=== PATIENT | female | born 1945 | race Caucasian/White ===

== ENCOUNTER 2016-09-09 05:35 | Day surgery (SDC) | payer MEDICARE, OTHER ==
[~2016-09-09] VITALS: Ht 152.4 cm; Wt 76.4 kg
[~2016-09-09 05:35] MED LIST: IBUP-2070 PO; KDUR20 PO; METF500T4 PO; MULT-1259 PO; OMEP20 PO; RALO60 PO; SENN-34 PO; SIMV10TA6 PO; TIZA4TAB4 PO; VALS1TAB73 PO
[2016-09-09] MEDS ORDERED: SODIUM CHLORIDE 0.9% 1,000 ML IV ONE ×2 (05:47→06:00)
[2016-09-09] MEDS ORDERED: FentaNYL CITRATE-PF 100 MCG/2 ML VIAL ONE (08:11)
[2016-09-09 08:13] VITALS: BP 177/75
[2016-09-09] MEDS ORDERED: DiphenhydrAMINE HCL 50 MG/ML VIAL ONE (08:13)
[2016-09-09] MEDS ORDERED: BUPIVACAINE HCL/PF 0.75% 10 ML VIAL ONE (08:13)
[2016-09-09] MEDS ORDERED: TRIAMCINOLONE ACETONIDE 40 MG/ML VIAL ONE ×2 (08:13→08:24)
[2016-09-09] MEDS ORDERED: MethylPREDNISolone SOD SUCC 125 MG/2 ML VIAL ONE (08:13)
[2016-09-09] MEDS ORDERED: IOHEXOL 300 MG/ML 10 ML VIAL ONE (08:13)
[2016-09-09] MEDS ORDERED: MIDAZOLAM HCL 2 MG/2 ML VIAL ONE (08:13)
[2016-09-09] MEDS ORDERED: SODIUM BICARBONATE 50 MEQ/50 ML VIAL ONE (08:14)
[2016-09-09] MEDS ORDERED: LIDOCAINE HCL/PF 2% 5 ML VIAL ONE (08:14)
[2016-09-09] MEDS ORDERED: LIDOCAINE HCL/PF 1% 30 ML VIAL ONE (08:14)
[2016-09-09 08:35] VITALS: BP 150/67
[2016-09-09] MEDS ORDERED: IOHEXOL 300 MG/ML 10 ML VIAL IARTIC ONE (09:00)
[2016-09-09] MEDS ORDERED: MIDAZOLAM HCL 2 MG/2 ML VIAL IVP ONE (09:00)
[2016-09-09] MEDS ORDERED: MethylPREDNISolone SOD SUCC 125 MG/2 ML VIAL IVP ONE (09:00)
[2016-09-09] MEDS ORDERED: TRIAMCINOLONE ACETONIDE 40 MG/ML VIAL IARTIC ONE (09:00)
[2016-09-09] MEDS ORDERED: LIDOCAINE 1% 30 ML/SOD BICARB 8.4% 4 ML SQ ONE (09:00)
[2016-09-09] MEDS ORDERED: FentaNYL CITRATE-PF 100 MCG/2 ML VIAL IVP ONE (09:00)
[2016-09-09] MEDS ORDERED: DiphenhydrAMINE HCL 50 MG/ML VIAL IVP ONE (09:00)
[2016-09-09 11:04] LABS: GLUCOSE,POINT OF CARE 89 MG/DL (70-110)
== END 2016-09-09 10:05 | disposition home or self-care (01) ==
LOC: SDS 05:35
PROVIDERS: ATTEND Specialist
DX: M48.06 Spinal stenosis, lumbar region (principal); G89.29 Other chronic pain; M54.5 Low back pain; I10 Essential (primary) hypertension; E11.9 Type 2 diabetes mellitus without complications; K21.9 Gastro-esophageal reflux disease without esophagitis; F17.210 Nicotine dependence, cigarettes, uncomplicated; Z88.2 Allergy status to sulfonamides; Z88.8 Allergy status to other drugs, medicaments and biological substances; Z96.652 Presence of left artificial knee joint; Z98.890 Other specified postprocedural states; Z90.49 Acquired absence of other specified parts of digestive tract; Z86.73 Personal history of transient ischemic attack (TIA), and cerebral infarction without residual deficits
CPT/HCPCS: 62323; 82962; J1200; J2250; J2930; J3010; J3301; J3490 ×3; J7030; Q9967